=== PATIENT | male | born 1985 | race Caucasian/White ===

== ENCOUNTER 2019-07-23 08:17 | Outpatient (CLI) | payer BC, SELFPAY ==
--- NOTE | 2019-07-23 08:48 | CT_ITS ---
WS: [id number] CT NECK TECHNIQUE: Contrast-enhanced CT of the neck with coronal and sagittal reformatted images. CLINICAL INFORMATION: SIALOLITHIASIS COMPARISON: None. DLP: 2523.[address] scans at [facility] use at least one of these dose optimization techniques: automat ed exposure control; mA and/or kV adjustment per patient size (includes targeted exams where dose is matched to clinical indication); or iterative reconstruction. FINDINGS: Right submandibular calculus along the distal duct measuring 4 mm. No other visualized submandibular duct calculi. No parotid duct calculi. Normal parotid glands. Chronic appearing atrophy right submand ibular gland compared to the left. Normal parapharyngeal fat. Posterior nasopharynx is normal. No evidence of supraglottic or glottic ma ss. Normal piriform sinuses. Normal thyroid gland. No cervical lymphadenopathy. Lung apices are bernie l. Fluid within the ethmoid air cells. Mild mucosal thickening left maxillary sinus. Mastoid air cells w ell aerated. CT/CT neck w con* [id number] IMPRESSION: 1. 4 mm calculus along the distal right submandibular duct. 2. No evidence of inflammatory stranding or edema. Chronic appearing atrophy r ight submandibular gland. 3. Parotid glands are normal in appearance. 4. Fluid within the ethmoid air cells. Mild mucosal thickening left maxillary sinus. Mastoid air cells well aerated. 5. No evidence of supraglottic or glottic mass. 6. No cervical lymphadenopathy.
[2019-07-23] MEDS: iohexol 300 mg/mL 100 mL Btl IV (09:36)
== END 2019-07-23 08:18 | disposition home or self-care (01) ==
LOC: RADWPI 08:22
PROVIDERS: PCP Family Medicine; Visit Provider Specialist
DX: K11.5 Sialolithiasis (principal)
CPT/HCPCS: 70491; Q9967

== ENCOUNTER → 2019-10-23 12:49 | Outpatient (BNVA) | payer BC, SELFPAY | PROVIDERS: PCP Family Medicine; Visit Provider Specialist | DX: R20.0 Anesthesia of skin (principal); R20.2 Paresthesia of skin | CPT/HCPCS: 95910 ==

== ENCOUNTER 2019-12-03 08:08 | Outpatient (RCR) | payer BC, SELFPAY | END 2019-12-19 23:59 | disposition home or self-care (01) | LOC: SOT 08:08 | PROVIDERS: PCP Family Medicine; Referring Provider Orthopaedic Surgery; Visit Provider Orthopaedic Surgery | DX: M79.631 Pain in right forearm (principal); M79.632 Pain in left forearm | CPT/HCPCS: 97110; 97167 ==